=== PATIENT | male | born 1975 | race Caucasian/White ===

== ENCOUNTER → 2018-03-12 12:03 | Outpatient (CLI) | payer OTHER, SELFPAY ==
--- NOTE | 2018-03-12 12:14 | RAD_ITS ---
STUDY: X-RAY - CERVICAL SPINE REASON FOR EXAM: Male, 42 years old. Bilateral hand numbness and weakness TECHNIQUE: 5 view(s) of the cervical spine were obtained. COMPARISON: None FINDINGS: Normal anterior atlantoaxial articulation. Normal odontoid process. Normal cervical lordosis. Normal vertebral bodies and endplates. There is mild narrowing of the C5-6 disc space. Normal visualized intervertebral neuroforamina. The soft tissue structures are unremarkable. RAD/Cerv Spine 4 or 5 Views IMPRESSION: Mild narrowing of the C5-6 disc space. The remainder of the study is unremarkable. Electronically Signed: Jorge Alberto Morris MD at 23:57 EDT , Service support ,
== END ==
PROVIDERS: Family Provider Family Medicine; PCP Family Medicine; Visit Provider Family Medicine
DX: M54.2 Cervicalgia (principal)
CPT/HCPCS: 72050

== ENCOUNTER → 2018-03-26 16:13 | Outpatient (CLI) | payer OTHER, SELFPAY ==
--- NOTE | 2018-03-26 16:18 | MRI_ITS ---
STUDY: MRI CERVICAL SPINE WITHOUT CONTRAST REASON FOR EXAM: Male, 42 years old. Neck pain with bilateral numbness of the upper extremities TECHNIQUE: Standardized fat and water weighted pulse sequences were obtained in the sagittal and axial planes. COMPARISON: None FINDINGS: Normal foramen magnum and brainstem-cervical cord junction. Normal craniovertebral junction. Normal anterior atlantoaxial articulation. Normal odontoid process. Normal cervical lordosis. Normal vertebral bodies and posterior osseous elements. C2-3: Normal endplates. Normal disc height, signal and morphology. Normal central canal and intervertebral neural foramina. C3-4: Normal endplates. Normal disc height, signal and morphology. Normal central canal. Mild bilateral neural foraminal encroachment secondary to bony hypertrophy. C4-5: Normal endplates. Normal disc height, signal and tiny central disc protrusion.. Normal central canal. Mild right neuroforaminal encroachment secondary to bony hypertrophy C5-6: Normal endplates. Normal disc height, signal and mild bulging of the disc. Normal central canal. Mild right neuroforaminal encroachment. C6-7: Normal endplates. Normal disc height, signal and mild to moderate bulging of the disc. Mild narrowing of the central canal and moderate bilateral neuroforaminal stenosis.. C7-T1: Normal endplates. Normal disc height, signal and morphology. Normal central canal and intervertebral neural foramina. Normal cervical cord. Normal visualized soft tissue structures. MRI/Spine Cervical (Routine) IMPRESSION: No evidence for acute fracture or other significant bony pathology Mild multilevel spinal stenosis secondary to disc disease and bony hypertrophy most pronounced at C6-7. Findings as above Electronically Signed: Marcos Nieto MD at 17:59 EDT , Service support ,
== END ==
PROVIDERS: Family Provider Family Medicine; PCP Family Medicine; Visit Provider Family Medicine
DX: M54.2 Cervicalgia (principal)
CPT/HCPCS: 72141

== ENCOUNTER 2018-07-20 14:21 | Day surgery (SDC) | payer OTHER, SELFPAY ==
[2018-07-20 14:42] VITALS: BP 168/96; PULSE 81; RESP 18; TEMP 36.6; O2SAT 100; BMI 40.9
[2018-07-20] MEDS: Cefazolin 2 GM in 0.9% Normal Saline 100 ML IV (15:45)
--- NOTE | 2018-07-20 15:50 | DCINST_ITS ---
Discharge Diet: No Restrictions - leave dressing in place, follow up in 2 weeks for suture removal, do not get incision/dressing wet, call with concerns Discharge Activity: May Not Drive May shower in (days): 1 Ice area for (Minutes): 20 - Every hour while awake. Weight Bearing Status: Weight bearing as tolerated Keep extremity elevated above heart level: Operative Extremity Call your doctor if your incision/area has: Continuous Slow Oozing, Sudden Increased Bleeding, Increased Pain/ Swelling, Increased Redness, Foul Smelling Discharge Call your doctor if you observe: Fever of 101 or Higher, Coldness, Increased Pain, Numbness or Tingling, Change in Color, Calf discomfort Allergies/Adverse Reactions: Allergies paroxetine [From Paxil] Allergy (Verified 07/13/18 13:43) Other prednisone Allergy (Verified 07/13/18 13:43) chest tightness Medications to take at Discharge lisinopril 20 mg tablet 20 mg PO DAILY 06/21/18 testosterone 50 mg/mL intramuscular solution 140 mg IM QWEEK 06/21/18 Multivitamin [Multiple Vitamins] 1 each PO DAILY 07/13/18 Hydrocodone Bitart/Apap 5-325 [[place] 5MG-325MG] 1 - 2 tablet PO Q6H PRN PRN 5 Days #20 tablet 07/20/18 The following prescriptions were given: Hydrocodone Bitart/Apap 5-325 [[place] 5MG-325MG] 1 - 2 tablet PO Q6H PRN PRN 5 Days #20 tablet PRN Reason: Pain Primary Care Physician: Hernan Fuller MD [Primary Care Provider] - Test Results: Test results from this visit will be discussed in further detail at your follow- up appointment, if applicable. Please Follow Up With: Luna Bellamy, - [phone]
--- NOTE | 2018-07-20 15:51 | OP.PCM_ITS ---
Report of Operation Date of Procedure: 07/20/18 Pre-Operative Diagnosis: bilateral carpal tunnel syndrome Post-Operative Diagnosis: same Surgery/Procedure Performed:: left carpal tunnel release, right carpal tunnel injection plastics fabricator and assembler: Brian Turk Type of Anesthesia:: Adán Russell MAC Anesthesiologist: Marek Dumont Estimated Blood Loss (mL): none Fluids Replaced: 500ml Description of Procedure: Preoperative note Patient is a { 42yo male } patient with nerve conduction study confirming bilateral carpal tunnel syndrome. Patient failed conservative treatment for her carpal tunnel elected proceed with left carpal tunnel release. Risks benefits and alternatives surgery discussed with patient. Risks including but not limited to blood loss, blood clot, infection, neurovascular injury, failure procedure, loss of life and loss of limb. Patient is aware like proceed with left carpal tunnel release and right carpal tunnel release. Operative note Patient seen and examined preoperative holding area. Left hand was marked. History and physical and consent reviewed. Patient was brought to the operating room placed supine on the operating table. Sign in, anesthesia, antibiotics were administered. Left upper extremity was prepped and draped after Adán block was initiated. All bony prominences well-padded SCDs placed on bilateral lower extremities. We marked out our incisions for our carpal tunnel release at the intersection of Lori's line in the fourth ray flexed. We extended about a ce ntimeter and a half. Timeout was performed. We then checked ensure that the Adán block was working with pickups which it was. We then used a 15 blade to make a skin incision. We then dissected down tenotomy syllable of the transverse carpal ligament. We then used a new 15 blade cut through the transverse carpal ligament down to the level of the median nerve. We then further released the median nerve the combination of the 15 blade and tenotomies. The nerve was grayish in color and adherent to the transverse carpal ligament volarly. We released the transverse carpal ligament distally to the fat pad and then proximally under standard technique. We then palpated to ensure that we released all of the transverse carpal ligament which we did. We irrigated the incision with copious amounts of sterile saline. All bleeders were coagulated. The incision was closed with interrupted 4-0 nylon stitches. Tourniquet was deflated for total working time of 7 minutes. We then moved to his right carpal tunnel. Standard sterile technique we injected his right carpal tunnel with 1 cc of ropivacaine and 1/2 cc of Kenalog. A Band-Aid was applied. Patient tolerated procedure well there were no complications. Patient transferred to recovery room in stable condition. Postoperative note Hospital pharmacy has prescription Leave dressing clean dry and intact Follow-up in 2 weeks Call with concerns This note was generated with [employer]. dictation software. It may contain incorrect words, spelling, and punctuation that were not noted in checking the note before signing.
[2018-07-20] MEDS: Triamcinolone Acetonide 40 MG/ML Vial (16:05)
[2018-07-20] MEDS: Ropivacaine 0.5% 30 ML Vial (16:07)
[2018-07-20] MEDS: Mupirocin Ointment 22gm Tube 1 APPLIC (16:07)
[2018-07-20 16:25] VITALS: BP 113/82; BP 168/96; PULSE 89; RESP 16; TEMP 36.7; O2SAT 92
[2018-07-20 16:30] VITALS: BP 120/80; BP 168/96; PULSE 90; RESP 16; O2SAT 94
[2018-07-20 16:35] VITALS: BP 116/82; BP 168/96; PULSE 94; RESP 16; O2SAT 90
[2018-07-20 16:40] VITALS: BP 124/88; BP 168/96; PULSE 93; RESP 16; TEMP 36.6; O2SAT 96
[2018-07-20 17:05] VITALS: BP 168/96
== END 2018-07-20 17:23 | disposition home or self-care (01) ==
PROVIDERS: Family Provider Family Medicine; PCP Family Medicine; Referring Provider Orthopaedic Surgery; Visit Provider Orthopaedic Surgery
PROC: (CPT 64721; principal; 2018-07-20 15:40)
DX: G56.03 Carpal tunnel syndrome, bilateral upper limbs (principal); K21.9 Gastro-esophageal reflux disease without esophagitis; I10 Essential (primary) hypertension
CPT/HCPCS: 01810; 64721; J7120

== ENCOUNTER 2018-09-18 14:58 | Emergency (ER) | payer OTHER, SELFPAY ==
[2018-09-18 14:59] VITALS: BP 175/119; PULSE 119; RESP 20; TEMP 36.7; O2SAT 97; BMI 40.6
--- NOTE | 2018-09-18 15:13 | EKG12_ITS ---
Test Reason : SOB Blood Pressure : / mmHG Vent. Rate : 091 BPM Atrial Rate : 091 BPM P-R Int : 156 ms QRS Dur : 094 ms QT Int : 348 ms P-R-T Axes : 039 056 -02 degrees QTc Int : 428 ms Normal sinus rhythm Poor R wave progression Possible Inferior infarct , age undetermined Abnormal ECG Confirmed by HARISH MENDOZA, FARHAN ([id number]), news assignment editor BETH COLEMAN ([id number]) on 09/21/2018 3:13:34 PM Referred By: TL Confirmed By:FARHAN MOREIRA MD
--- NOTE | 2018-09-18 15:15 | ED.VISSUMM ---
- ER Visit Summary Date of Service: 09/18/18 Chief Complaint: Cough, dyspnea History of Present Illness: The patient is a 43 M waxing waning dry cough past 2 months. No fevers. Occasional wheezing. States increasing dyspnea over the past day. No recent travel, surgeries, or immobilizations. No history of PE or DVT. Denies chest pain. No tobacco history. History of hypertension is on lisinopril, reports has been on this for 2 months with no increasing doses. Stable No exertional dyspnea. No leg swelling or cramps. Physical Examination: General: Alert and oriented ?3, no acute distress HEENT: Normocephalic, atraumatic. Moist mucosa membranes Neck: supple, nontender. Cardiovascular: Regular tachycardic rate 102 and rhythm, no murmurs Respiratory: Normal breath sounds, symmetric, no distress Abdomen: Soft, nontender, nondistended Extremities: Nontender, no edema, pulses intact ?4 Neuro: no focal neurological deficits. Test Results: EKG, sinus rate of [address] changes. T wave inversion in leads III. D-dimer negative. Hemoglobin 18 creatinine 1.61. Chest x-ray negative. Emergency Department Course and Treatment: Patient vitals stable slight tachycardia. 119 in triage 102 on my evaluation. Dry nonproductive cough. Low risk Wells criteria for PE. EKG and labs will be obtained with d-dimer for further evaluation. D-dimer negative. Hemoglobin 18, creatinine 1.61. Patient denies any recent vomiting or diarrhea. There is no old labs for comparison however his creatinine 1 1.5 on lisinopril, he did take denies any previous history of renal insufficiency. He does take indomethacin for gout, has used this for 3 days. He has not overused this. 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 Lisinopril was held for the cough and for his worsening renal insufficiency. For his blood pressure I will place him on amlodipine daily. Discussed with patient with his cough for 2 months not improving will trial empiric therapy with a Z-Trae he agrees with this plan. He will call his PCP for follow-up reevaluation and recheck his labs. All questions were answered. Treatment Plan: [] Disposition: Discharge Impression: 1. Acute bronchitis 2. Acute renal insufficiency This note was generated with [employer] dictation software. It may contain incorrect words, spelling, and punctuation that were not noted in review of the chart prior to signing ED Disposition - Plan for ED Patient: Disposition: Home or Assisted Living Chief Complaint: Shortness of Breath Diagnosis: Acute bronchitis, Acute renal insufficiency Instructions: ED Upper Resp Infec Abx Tx Prescriptions: Albuterol Sulfate [Proventil Hfa] 6.7 gm IH Q4H PRN PRN #1 [email or web address] PRN Reason: sob or wheezing Amlodipine [Norvasc] 10 mg PO DAILY #30 tablet Benzonatate [Tessalon Perle] 100 mg PO TID PRN #20 capsule PRN Reason: Cough Referrals: Hernan Fuller MD [Primary Care Provider] - 5-7 Days Additional Instructions: 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 Creatinine 1.61. hold lisinopril and any anti-inflammatory medicines. Will trial Z-Trae. Cough suppressants as needed. Recheck labs by year Will start amlodipine for blood pressure control.
[2018-09-18] MEDS: 0.9% Normal Saline 1,000 ML 150 ML IV (15:24)
[2018-09-18 15:30] VITALS: PULSE 118; RESP 18; TEMP 36.7; O2SAT 99
[2018-09-18 15:53] LABS: Absolute Lymphocyte Count 1.75 X10^3/ul (0.83-4.51); Absolute Neutrophil Count 7.3 X10^3/uL (2.0-7.7); Anion Gap 9 (5-15); BUN 11 mg/dL (7-18); BUN/Creat Ratio 6.8 RATIO (10-20); Basophil# 0.02 X10^3/uL; Basophil% 0.2 % (0-1); Calcium,Total 9.1 mg/dL (8.5-10.1); Chloride 106 mmol/L (98-107); Creatinine, Serum 1.61 mg/dL (0.70-1.30); EST Glomerular Filtration Rate 50 mL/min (>60); Eosinophil# 0.11 X10^3/uL; Eosinophils% 1.1 % (0-5); Est Glom Filt Rate - Afr Amer 60 mL/min (>60); Estimated Creatinine Clearance 56.06 ml/min; Glucose 102 mg/dL (74-106); Hematocrit 54.7 % (40-54); Lymphocyte # 1.75 X10^3/ul (4.0); Lymphocyte % 17.3 % (19-41); Mean Corpuscular Hgb 28.8 pg (27.0-32.0); Mean Corpuscular Volume 84.7 fL (80-94); Mean Platelet Vol. 9.4 fl (6.2-12.0); Monocyte# 0.85 X10^3/uL; Monocyte% 8.4 % (0-10); Neutrophil # 7.33 X10^3/uL (2.7-7.7); Neutrophil % 72.7 % (47-70); POSITIVE COUNT NO; POSITIVE DIFFERENTIAL NO; POSITIVE MORPHOLOGY NO; Platelet Count 179 K/mm3 (150-450); Potassium 3.5 mmol/L (3.5-5.1); RBC Distribution Width CV 14.1 % (11.6-14.6); RBC Distribution Width SD 43.2 fl (35.1-43.9); Red Blood Count 6.46 M/mm3 (4.6-6.2); Sodium Level 145 mmol/L (136-145); White Blood Count 10.1 K/mm3 (4.4-11.0)
[2018-09-18 15:54] VITALS: PULSE 112; RESP 20
[2018-09-18 15:54] LABS: Hemoglobin 18.6 g/dl (13.0-16.5)
[2018-09-18] MEDS: Ipratropium/Albuterol Sulfate 3 ML AMPUL.NEB INHALATION (15:54)
[2018-09-18 16:01] LABS: D-Dimer Quantitative (DVT/PE) < 0.27 FEU/ug/m (0.27-0.49)
[2018-09-18 16:10] VITALS: BP 142/97; PULSE 117; RESP 18; TEMP 36.6; O2SAT 99
--- NOTE | 2018-09-18 16:11 | RAD_ITS ---
STUDY: X-RAY CHEST REASON FOR EXAM: Male, 43 years old. TECHNIQUE: COMPARISON: None. FINDINGS: The heart is not enlarged. The mediastinum is unremarkable. Both lung longoria and costophrenic angles are clear. No evidence of pleural effusion or pneumothorax. The trachea is in the midline. The visualized bony structures are intact. RAD/Chest PA and Lateral IMPRESSION: Negative study Electronically Signed: Barbara Gilliam, at 16:39 EST Tel , Service support ,
[2018-09-18] MEDS: Azithromycin 250 MG Tablet 500 MG PO (17:13)
[2018-09-18 17:14] VITALS: BP 142/94; PULSE 91; RESP 18; TEMP 36.6; O2SAT 99
== END 2018-09-18 17:15 | disposition home or self-care (01) ==
PROVIDERS: Emergency Provider Emergency Medicine; Family Provider Family Medicine; PCP Family Medicine
DX: J20.9 Acute bronchitis, unspecified (principal); N28.9 Disorder of kidney and ureter, unspecified; I10 Essential (primary) hypertension
CPT/HCPCS: 71046; 80048; 85025; 85379; 93005; 94640; 99285; J7030; A4216

== ENCOUNTER → 2019-05-13 11:45 | Outpatient (CLI) | payer OTHER, SELFPAY ==
--- NOTE | 2019-05-13 13:59 | STRESSREP ---
Stress Test Report Exercise stress test. 43-year-old male with a history of chest pain. Next Stress protocol: Resting EKG demonstrates normal sinus rhythm with a rate of 96 bpm normal intervals are noted resting blood pressures 138/94 mmHg. Patient exercised according to regular Fidel protocol for total duration of 9 minutes the maximum heart rate attained was 166 bpm which was 94% of maximum predicted heart rate the maximum workload was 10.1 metabolic equivalents. The patient maintained sinus rhythm throughout the recording. At rest there were no ST or T wave changes noted suggest a normal flow reserve all ischemia at peak exercise upsloping ST changes only were noted with no meet the criteria for ischemia. No clinical angina was noted no arrhythmias were present. The resting blood pressure was 138/94 with a peak blood pressure 172/80 mmHg. Rate pressure product was 28,500. Conclusion: Exercise stress test with no EKG criteria for ischemia at a high workload. No clinical angina noted No arrhythmias noted Good functional capacity.
== END ==
PROVIDERS: Family Provider Family Medicine; PCP Family Medicine; Referring Provider Family Medicine; Visit Provider Family Medicine
DX: R07.9 Chest pain, unspecified (principal)
CPT/HCPCS: 93017

== ENCOUNTER → 2020-08-06 17:17 | Outpatient (CLI) | payer OTHER, SELFPAY ==
--- NOTE | 2020-08-06 17:21 | RAD_ITS ---
STUDY: X-RAY - LEFT FOOT CLINICAL: Male, 44 years old. Left foot pain since Labor Day TECHNIQUE: 3 view(s) of the foot. COMPARISON: None. FINDINGS: Normal talus, calcaneus, and tarsal bones. Plantar calcaneal spur. Normal visualized subtalar, talonavicular, calcaneocuboid, tarsal and tarsometatarsal articulations. Normal metatarsi. Normal metatarsophalangeal joint of the great toe. Normal tibial and fibular sesamoid bones. Normal interphalangeal joint of the great toe. Normal phalanges of the great toe. Normal second through fifth metatarsophalangeal joints. Normal interphalangeal joints and phalanges of the lesser toes. The soft tissue structures are unremarkable. RAD/Foot min 3 Views IMPRESSION: Plantar calcaneal spur. Electronically Signed: Nilson Henry DO at 0:00 EST Tel [phone], Service support ,
== END ==
PROVIDERS: PCP Family Medicine; Referring Provider Family Medicine; Visit Provider Family Medicine
DX: M79.673 Pain in unspecified foot (principal)
CPT/HCPCS: 73630

== ENCOUNTER 2021-10-13 16:34 | Outpatient (CLI) | payer BC, SELFPAY ==
[2021-10-13 18:42] LABS: AST(SGOT) 37 U/L (15-37); Alanine Aminotransfer ALT/SGPT 74 U/L (16-61); Albumin, Serum 3.7 g/dL (3.2-5.0); Alkaline Phosphatase 93 U/L (45-117); Anion Gap 5 (5-15); BUN 16 mg/dL (7-18); Chloride 105 mmol/L (98-107); EST Glomerular Filtration Rate 85 mL/min (>60); Est Glom Filt Rate - Afr Amer 103 mL/min (>60); Globulin 4.1 g/dL (2.2-4.2); Glucose 95 mg/dL (74-106); PSA,Total- Diagnostic 2.31 ng/mL (0.0-4.0); Potassium 3.7 mmol/L (3.5-5.1); Protein, Total 7.8 g/dL (6.4-8.2); Sodium Level 139 mmol/L (136-145)
== END 2021-10-13 23:59 | disposition short-term general hospital (02) ==
LOC: MFPLAB 16:37
PROVIDERS: PCP Family Medicine; Referring Provider Family Medicine; Visit Provider Family Medicine
DX: I10 Essential (primary) hypertension (principal); R79.89 Other specified abnormal findings of blood chemistry
CPT/HCPCS: 36415; 80048; 80076; 84153; 84403

== ENCOUNTER → 2022-04-11 | Outpatient (CLI) | payer BC, SELFPAY ==
[2022-04-11 18:22] LABS: ALB/GLOB Ratio 0.8 RATIO (0.9-2.4); AST(SGOT) 23 U/L (15-37); Alanine Aminotransfer ALT/SGPT 47 U/L (16-61); Albumin, Serum 3.5 g/dL (3.2-5.0); Alkaline Phosphatase 100 U/L (45-117); Anion Gap 5 (5-15); BUN 15 mg/dL (7-18); BUN/Creat Ratio 14.3 RATIO (10-20); Calcium,Total 9.3 mg/dL (8.5-10.1); Chloride 106 mmol/L (98-107); Cholesterol 168 mg/dL (200); Creatinine, Serum 1.05 mg/dL (0.70-1.30); EST Glomerular Filtration Rate 80 mL/min (>60); Est Glom Filt Rate - Afr Amer 97 mL/min (>60); Globulin 4.3 g/dL (2.2-4.2); Glucose 94 mg/dL (74-106); High Density Lipoprotein 40 mg/dL; Protein, Total 7.8 g/dL (6.4-8.2); Sodium Level 141 mmol/L (136-145); Triglycerides 162 mg/dL; Very Low Density Lipoprotein 32 mg/dL (5-40)
== END | disposition home or self-care (01) ==
LOC: MFPLAB 16:31
PROVIDERS: PCP Family Medicine; Visit Provider Family Medicine
DX: R79.89 Other specified abnormal findings of blood chemistry (principal); R73.01 Impaired fasting glucose
CPT/HCPCS: 36415; 80053; 80061; 84403